=== PATIENT | female | born 1980 | race Hispanic/Latino ===

== ENCOUNTER 2017-07-28 11:36 | Emergency (ER) | payer MEDICAID ==
[2017-07-28 11:37] VITALS: BMI 24.9
[2017-07-28 11:47] VITALS: BP 115/79; RESP 18; TEMP 98.4
[2017-07-28] MEDS ORDERED: Acetaminophen 160 mg/5 ml UD PO ONE (12:17)
[2017-07-28] MEDS ORDERED: Acetaminophen 650mg/20.3ml solution UD ONE (12:21)
--- NOTE | 2017-07-28 12:39 | C.PDOC ---
History Of Present Illness The patient is a 36yo female, presents to the ED for evaluation of right great toe injury after striking her toe against the curb. Patient reports continued pain and swelling to the area. She denies any numbness or tingling and also denies taking medication for the pain. She offers no additional medical complaints. Time Seen by Provider: 07/28/17 12:15 Chief Complaint (Nursing): Lower Extremity Problem/Injury History Per: Patient History/Exam Limitations: no limitations Onset/Duration Of Symptoms: Days (1) Current Symptoms Are (Timing): Still Present Recent travel outside of the [place]: No Additional History Per: Patient - Ankle/Foot Description Of Injury: Struck Against Object Past Medical History Reviewed: Historical Data, Nursing Documentation, Vital Signs Vital Signs: Last Vital Signs Temp 98.4 F 07/28/17 13:15 Pulse 96 H 07/28/17 13:15 Resp 18 07/28/17 13:15 BP 115/79 07/28/17 13:15 Pulse Ox 99 07/29/17 09:13 - Medical History PMH: Anxiety, Gastritis Surgical History: No Surg Hx Family History: States: Unknown Family Hx - Social History Hx Tobacco Use: No Hx Alcohol Use: No Hx Substance Use: Yes - Immunization History Hx Tetanus Toxoid Vaccination: No Hx Influenza Vaccination: No Hx Pneumococcal Vaccination: No Review Of Systems Musculoskeletal: Positive for: Foot Pain (right great toe pain) Neurological: Negative for: Weakness, Numbness Physical Exam - Physical Exam Additional Physical Exam Comments: Constitutional: uncomfortable, wdwn Head: Normocephalic. Atraumatic. Musculoskeletal: Ecchymosis and swelling to medial aspect of right great toe. Decreased ROM right great toe due to pain. Normal DP pulses. normal rom other toes, foot and ankle with no tenderness or swelling. Neurologic: Alert, no focal deficit. ED Course And Treatment O2 Sat by Pulse Oximetry: 99 (RA) Pulse Ox Interpretation: Normal Medical Decision Making Medical Decision Making: Impression: 36yo female with right great toe injury Plan: -- XR Right foot -- Tylenol 640 mg PO xray reviewed with ? fx ventral surface great toe, michael tape toes 1 and 2 with ortho shoe and podiatry f/u Disposition Counseled Patient/Family Regarding: Studies Performed, Diagnosis, Need For Followup, Rx Given - Disposition Referrals: Podiatry Clinic [Outside] Disposition: HOME/ ROUTINE Disposition Time: 13:00 Condition: STABLE Additional Instructions: Keep toes michael taped and wear shoe for support. Tylenol or Motrin for pain. 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 MD/DO has examined the patient and agrees with the treatment plan. - Scribe Statement The provider has reviewed the documentation as recorded by the Luis Carlos Bellamy All medical record entries made by the Luis Carlos were at my direction and personally dictated by me. I have reviewed the chart and agree that the record accurately reflects my personal performance of the history, physical exam, medical decision making, and the department course for this patient. I have also personally directed, reviewed, and agree with the discharge instructions and disposition.
[2017-07-28 13:16] VITALS: PULSE 96
--- NOTE | 2017-07-28 13:49 | RAD ---
PROCEDURE: Right great toe dated 07/28/2017 TECHNIQUE:: AP radiograph of the right foot, with oblique and lateral view of the right great toe. COMPARISON: None. FINDINGS: BONES: Current study reveals a minimally displaced fracture along the base of the distal phalanx right great toe. . Fracture line appears to extend into lateral joint space margin of the DIP joint. JOINTS: Minor hallux valgus deformity of with slight prominence of the head of the 1st metatarsal. There is also minimal prominence of the soft tissues overlying the head of the 1st metatarsal and MCP joint. SOFT TISSUES: As above. No radiopaque foreign bodies OTHER FINDINGS: None. IMPRESSION: There is a fracture traversing base distal phalanx great toe which appears to extend into the joint space margin as above.
[2017-07-29 09:12] VITALS: O2SAT 99
== END 2017-07-28 13:15 | disposition home or self-care (01) ==
LOC: C.ER 11:36
DX: S92.421A Displaced fracture of distal phalanx of right great toe, initial encounter for closed fracture (principal); W22.8XXA Striking against or struck by other objects, initial encounter

== ENCOUNTER 2017-08-29 19:06 | Emergency (ER) | payer OTHER, MEDICAID ==
[2017-08-29 19:06] VITALS: BMI 24.9
[2017-08-29 19:13] VITALS: O2SAT 98
[2017-08-29 20:44] VITALS: BP 111/70; PULSE 81; RESP 18; TEMP 98
--- NOTE | 2017-08-29 20:46 | C.PDOC ---
History Of Present Illness 36 year old female presents to the ED with complaints of left shoulder pain for three days. Patient reports she was helping to move a resident when the resident pushed her injuring her L shoulder. She notes pain is worse with ROM and has not taken pain medications due to difficult swallowing pills. Patient has been applying ice but pain persists. She denies neck pain, back pain, numbness, or weakness. Time Seen by Provider: 08/29/17 19:27 Chief Complaint (Nursing): Upper Extremity Problem/Injury History Per: Patient History/Exam Limitations: no limitations Onset/Duration Of Symptoms: Days (3 days ) Current Symptoms Are (Timing): Still Present Quality: "Pain" Exacerbating Factor(s): Movement Recent travel outside of the [place]: No Past Medical History Reviewed: Historical Data, Nursing Documentation, Vital Signs Vital Signs: Last Vital Signs Temp 98 F 08/29/17 20:43 Pulse 81 08/29/17 20:43 Resp 18 08/29/17 20:43 BP 111/70 08/29/17 20:43 Pulse Ox 98 08/29/17 20:56 - Medical History PMH: Anxiety, Gastritis Family History: States: Unknown Family Hx - Social History Hx Tobacco Use: No Hx Alcohol Use: No Hx Substance Use: Yes (Marijuana) - Immunization History Hx Tetanus Toxoid Vaccination: No Hx Influenza Vaccination: No Hx Pneumococcal Vaccination: No Physical Exam - Physical Exam Appears: Non-toxic, No Acute Distress Skin: Warm, Dry Head: Atraumatic, Normacephalic Neck: Normal ROM, No Midline Cervical Tenderness, No Paracervical Tenderness, Supple Cardiovascular: Rhythm Regular, No Murmur Respiratory: No Rales, No Rhonchi, No Wheezing, Other (clear to auscultation bilaterally ) Extremity: Normal ROM (patient is able to abduct ), Tenderness (of the left shoulder to the AC joint), Capillary Refill (good capillary refill, less than two seconds ), No Deformity, No Swelling Pulses: Left Radial: Normal, Right Radial: Normal Neurological/Psych: Oriented x3, Normal Motor, Normal Sensation ED Course And Treatment O2 Sat by Pulse Oximetry: 98 (RA) - Other Rad Left shoulder X-Ray X-Ray: Viewed By Me, Read By Radiologist Interpretation: No acture fractures or dislocations. Progress Note: Patient was given Toradol and left shoulder X-Ray was ordered. Medical Decision Making Medical Decision Making: Shoulder sling applied. Disposition Counseled Patient/Family Regarding: Diagnosis, Need For Followup, Rx Given - Disposition Referrals: Susana Pichardo MD [Staff Provider] - Disposition: HOME/ ROUTINE Disposition Time: 20:35 Condition: STABLE Additional Instructions: Follow up with workman's comp or orthopedic referral in 2 days for re- evaluation and follow up. Rest, ice, wear sling. Take medication as prescribed. Return to the ER at any time for any new or worsening symptoms. 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 - Scribe Statement The provider has reviewed the documentation as recorded by the Scribmariela Noland All medical record entries made by the Nathanibmariela were at my direction and personally dictated by me. I have reviewed the chart and agree that the record accurately reflects my personal performance of the history, physical exam, medical decision making, and the department course for this patient. I have also personally directed, reviewed, and agree with the discharge instructions and disposition.
--- NOTE | 2017-08-30 08:49 | RAD ---
PROCEDURE: Radiographs of the Left Shoulder HISTORY: pain COMPARISON: No prior. FINDINGS: BONES: No fracture or destructive bony lesion identified. JOINTS: Normal. Glenohumeral and acromioclavicular joints preserved. No osteoarthritis. SOFT TISSUES: Trace calcification at the lateral rotator cuff region may indicate calcific tendinopathy. OTHER FINDINGS: None. IMPRESSION: No acute fracture subluxation or dislocation identified. Trace calcific tendinopathy not excluded.
== END 2017-08-29 20:49 | disposition home or self-care (01) ==
LOC: C.ER 19:06
DX: S43.402A Unspecified sprain of left shoulder joint, initial encounter (principal); W51.XXXA Accidental striking against or bumped into by another person, initial encounter
CPT/HCPCS: 73030; 96372; 99284; J1885

== ENCOUNTER 2018-01-22 02:26 | Emergency (ER) | payer MEDICAID ==
[2018-01-22 02:26] VITALS: BMI 24.9
[2018-01-22] MEDS ORDERED: Sodium Chloride 0.9% 1,000 ML IV ONE ×2 (02:30→03:03)
--- NOTE | 2018-01-22 02:30 | C.PDOC ---
History Of Present Illness 37 year old female presents to the ED c/o nausea, vomit and diarrhea after eating steak, mac and cheese at her friends house. Patient states she is not able to tolerate PO, and is actively dry heaving. Patient denies fever, chills, back pain. Time Seen by Provider: 01/22/18 02:29 History Per: Patient History/Exam Limitations: no limitations Onset/Duration Of Symptoms: Hrs Current Symptoms Are (Timing): Still Present Context: Food Location Of Pain/Discomfort: Diffuse Radiation Of Pain To:: None Quality Of Discomfort: "Pain" Associated Symptoms: Vomiting, Diarrhea, Loss Of Appetite Exacerbating Factors: Food Alleviating Factors: None Recent travel outside of the [place]: No Additional History Per: Patient Abnormal Vaginal Bleeding: No Past Medical History Reviewed: Historical Data, Nursing Documentation, Vital Signs Vital Signs: Last Vital Signs Temp 98 F 01/22/18 06:11 Pulse 83 01/22/18 06:11 Resp 18 01/22/18 06:11 BP 123/81 01/22/18 06:11 Pulse Ox 96 01/22/18 06:11 - Medical History PMH: Anxiety, Gastritis Surgical History: No Surg Hx Family History: States: Unknown Family Hx - Social History Hx Tobacco Use: No Hx Alcohol Use: No Hx Substance Use: Yes (Marijuana) - Immunization History Hx Tetanus Toxoid Vaccination: No Hx Influenza Vaccination: No Hx Pneumococcal Vaccination: No Review Of Systems Constitutional: Negative for: Fever, Chills Cardiovascular: Negative for: Chest Pain Respiratory: Negative for: Shortness of Breath Gastrointestinal: Positive for: Nausea, Vomiting, Abdominal Pain, Diarrhea Genitourinary: Negative for: Dysuria Musculoskeletal: Negative for: Back Pain Skin: Negative for: Rash Neurological: Negative for: Weakness, Numbness Physical Exam - Physical Exam Appears: Non-toxic, No Acute Distress Skin: Warm, Dry Head: Normacephalic Eye(s): bilateral: Normal Inspection Nose: No Discharge Oral Mucosa: Moist Neck: Supple Chest: Symmetrical Cardiovascular: Rhythm Regular, No Murmur Respiratory: No Rales, No Rhonchi, No Wheezing Gastrointestinal/Abdominal: Soft, Tenderness (diffusely), No Guarding Extremity: Normal ROM Neurological/Psych: Oriented x3 Gait: Steady ED Course And Treatment - Laboratory Results Result Diagrams: 01/22/18 02:48 03/14/18 02:48 Progress Note: Plan: - Labs. - Pepcid 20 mg IVP. - IV fluids. - Zofran 4 mg IVP. - UA Disposition Counseled Patient/Family Regarding: Studies Performed, Diagnosis - Disposition Disposition Time: 02:30 Condition: FAIR - Clinical Impression Clinical Impression: Abdominal pain, Nausea, Vomiting - Scribe Statement The provider has reviewed the documentation as recorded by the Scribe Alex Mancini All medical record entries made by the Scribe were at my direction and personally dictated by me. I have reviewed the chart and agree that the record accurately reflects my personal performance of the history, physical exam, medical decision making, and the department course for this patient. I have also personally directed, reviewed, and agree with the discharge instructions and disposition. Physician Patient Turnover Patient Signed Over To: Nitza Kay Handoff Comments: pending ct abd and disposition
[2018-01-22] MEDS ORDERED: Sodium Chloride 0.9% 1,000 ML ONE (02:42)
[2018-01-22 02:57] LABS: BASO # 0.2 K/uL (0.0-0.2); BASO % 0.8 % (0.0-2.0); EOS # 0.1 K/uL (0.0-0.7); EOS % 0.5 % (0.0-4.0); HEMOGLOBIN 13.8 g/dL (11.0-16.0); LYMPH # 2.7 K/uL (1.0-4.3); MEAN CELL VOLUME 90.7 fL (81.0-99.0); MEAN CORPUSCULAR HEMOGLOBIN 30.5 pg (27.0-31.0); MEAN CORPUSCULAR HGB CONC 33.7 g/dL (33.0-37.0); MEAN PLATELET VOLUME 9.8 fL (7.2-11.7); MONO # 1.2 K/uL (0.0-0.8); MONO % 5.7 % (0.0-10.0); NEUT # 16.7 K/uL (1.8-7.0); RBC 4.51 Mil/uL (3.80-5.20); RED CELL DISTRIBUTION WIDTH 13.3 % (11.5-14.5); WHITE BLOOD COUNT 20.9 K/uL (4.8-10.8)
[2018-01-22 02:58] LABS: INR 1.1; PROTHROMBIN TIME 12.3 SECONDS (9.7-12.2)
[2018-01-22 03:03] LABS: ALB/GLOB RATIO 1.5 (1.0-2.1); ALBUMIN 4.7 g/dL (3.5-5.0); ALT/SGPT 25 U/L (9-52); AST/SGOT 26 U/L (14-36); BLOOD UREA NITROGEN 21 mg/dL (7-17); CALCIUM 9.1 mg/dl (8.6-10.4); GFR AFRICAN-AMERICAN > 60; GFR NON-AFRICAN AMERICAN > 60; LIPASE 149 U/L (23-300)
[2018-01-22 06:04] LABS: SQUAMOUS EPITHIAL 1 /hpf (0-5); URINE BILIRUBIN NEGATIVE (NEGATIVE); URINE BLOOD NEGATIVE (NEGATIVE); URINE CLARITY Clear (Clear); URINE COLOR Yellow (YELLOW); URINE GLUCOSE (UA) NORMAL (Normal); URINE HYALINE CAST 0-2 /lpf (0-2); URINE LEUKOCYTE ESTERASE NEG Leu/uL (Negative); URINE PROTEIN NEGATIVE (NEGATIVE); URINE UROBILINOGEN NORMAL mg/dL (0.2-1.0)
[2018-01-22 06:26] LABS: HCG,QUALITATIVE URINE NEGATIVE (NEGATIVE)
[2018-01-22] MEDS ORDERED: Iodixanol 320 MG/ML 100 ML BOTTLE IV ONE (06:35)
--- NOTE | 2018-01-22 07:58 | CT ---
EXAM: CT Abdomen and Pelvis With Intravenous Contrast CLINICAL HISTORY: 37 years old, female; Pain; Abdominal pain; Generalized; Additional info: Abd pain, nausea, vomiting, leukocytosis TECHNIQUE: Axial computed tomography images of the abdomen and pelvis with intravenous contrast. All CT scans at this facility use one or more dose reduction techniques, viz.: automated exposure control; ma/kV adjustment per patient size (including targeted exams where dose is matched to indication; i.e. head); or iterative reconstruction technique. Coronal and sagittal reformatted images were created and reviewed. CONTRAST: 100 mL of [id number] administered intravenously. COMPARISON: CT - ABD PELVIS IV CONTRAST ONLY 2016-03-13 21:24 FINDINGS: Lower thorax: No acute findings. ABDOMEN: Liver: There are no focal liver lesions present. Mild periportal edema. Gallbladder and bile ducts: Marked gallbladder wall edema is noted. No calcified stones. No ductal dilation. Pancreas: Unremarkable. No mass. No ductal dilation. Spleen: Unremarkable. No splenomegaly. Adrenals: Unremarkable. No mass. Kidneys and ureters: Unremarkable. No solid mass. No hydronephrosis. Stomach and bowel: The mid to distal small bowel loops are mildly thickwalled with haziness of the adjacent small bowel mesentery suggesting acute enteritis. No obstruction. The colon is decompressed. Appendix: A normal appendix is identified. PELVIS: Bladder: Unremarkable. No mass. Reproductive: Unremarkable as visualized. ABDOMEN and PELVIS: Intraperitoneal space: There is a small amount of free pelvic fluid present. No free air. Bones/joints: No acute fracture. No dislocation. Soft tissues: Unremarkable. Vasculature: Unremarkable. No abdominal aortic aneurysm. Lymph nodes: Unremarkable. No enlarged lymph nodes. IMPRESSION: Marked gallbladder wall edema. Clinical correlation with laboratory values recommended to exclude acute cholecystitis. Right upper quadrant ultrasound could be obtained. Nonspecific mild periportal edema. This can be associated with fluid resuscitation. Acute enteritis. Small pelvic free fluid.
[2018-01-22] MEDS ORDERED: Morphine 4 MG/ML VIAL ONE (08:36)
--- NOTE | 2018-01-22 09:58 | US ---
HISTORY: nv, abn ct scan COMPARISON: None. TECHNIQUE: Sonographic evaluation of the right upper quadrant of the abdomen. FINDINGS: LIVER: Measures 15.0 cm in length. Normal echogenicity of the liver parenchyma. No mass. Questionable mild intrahepatic bile duct dilatation. GALLBLADDER: Nonspecific wall edema. Collapsed gallbladder. No gallstones or sludge. COMMON BILE DUCT: Measures 5 mm. No stones. No dilatation. PANCREAS: Unremarkable as visualized. No mass. No ductal dilatation. RIGHT KIDNEY: Measures 10.9 x 3.3 x 4.7 cm in length. Normal echogenicity. No calculus, mass, or hydronephrosis. AORTA: No aneurysmal dilatation. IVC: Unremarkable. OTHER FINDINGS: None . IMPRESSION: Gallbladder collapsed without stones or sludge. Nonspecific market gallbladder wall thickening. Gallbladder wall thickening is a nonspecific finding which can be seen with ascites, hepatitis, cholecystitis, CHF or hypoproteinemic states. Clinical correlation is recommended. If clinical concern for gallbladder pathology exists, a HIDA scan may be performed to evaluate for cystic and common duct patency.
--- NOTE | 2018-01-22 12:07 | CP.PCM.CON ---
History of Present Illness - History of Present Illness History of Present Illness: Surgery Consult Note. Dr. Chen 37yo F with PMHx of gastritis here for evaluation of nausea, vomiting and diarrhea. Patient reports symptoms started yesterday night. She states that she ate steak and mac n cheese yesterday evening and started having nausea and vomiting (non bilious, non bloody) 2 hours after. She states that she has been having generalized abdominal pain which is described as "muscle soreness from all the vomiting." She also c/o loose BMs x 2 last night and a semi-formed stool this morning. She reports some improvement in her symptoms today. She reports no subjective fevers, does c/o chills. She does report that in the past she has had some RUQ pain after eating a "fatty meal" but the current symptoms feel different. Denies any CP/SOB. No urinary complaints. No headaches. No sick contacts. PMHx: Anxiety, Gastritis PSHx: None Family Hx: non-contributory Social Hx: Deneis Tobacco use, Denies ETOH, admits to occasional marijuana use NKDA Review of Systems - Review of Systems All systems: reviewed and no additional remarkable complaints except - Constitutional Constitutional: Chills. absent: Fever - Cardiovascular Cardiovascular: absent: Chest Pain, Dyspnea - Respiratory Respiratory: absent: Cough, Dyspnea - Gastrointestinal Gastrointestinal: Belching, Diarrhea, Loose Stools, Nausea, Vomiting. absent: Hematemesis, Hematochezia, Melena - Genitourinary Genitourinary: absent: Difficulty Urinating, Dysuria - Musculoskeletal Musculoskeletal: absent: Back Pain - Neurological Neurological: absent: Dizziness, Headaches - Psychiatric Psychiatric: Anxiety Past Patient History - Infectious Disease Hx of Infectious Diseases: None - Past Medical History & Family History Past Medical History?: Yes Past Family History: Reviewed and not pertinent - Past Social History Smoking Status: Never Smoked Alcohol: None Drugs: Cannabis - MUSCULOSKELETAL/RHEUMATOLOGICAL Hx Falls: No - GASTROINTESTINAL Hx Gastritis: Yes - PSYCHIATRIC Hx Anxiety: Yes Hx Substance Use: Yes (Marijuana) - SURGICAL HISTORY Hx Surgeries: No - ANESTHESIA Hx Anesthesia: No Meds Home Medications: Home Medication List Medication Instructions Recorded Confirmed Type Amoxicillin/Clavulanate [Augmentin 1 tab PO BID #14 tab 01/22/18 Rx 875 MG-125 MG] Ondansetron [Zofran Odt] 4 mg PO TID PRN #9 odt 01/22/18 Rx oxyCODONE/Acetaminophen [Percocet 1 ea PO QID #8 tab 01/22/18 Rx 5/325 mg Tab] Allergies/Adverse Reactions: Allergies Allergy/AdvReac Type Severity Reaction Status Date / Time No Known Allergies Allergy Verified 07/28/17 11:48 Physical Exam - Constitutional Appears: Well, Non-toxic, No Acute Distress - Head Exam Head Exam: ATRAUMATIC, NORMAL INSPECTION, NORMOCEPHALIC - Eye Exam Eye Exam: EOMI, Normal appearance - ENT Exam ENT Exam: Mucous Membranes Moist, Normal Exam - Neck Exam Neck exam: Positive for: Normal Inspection - Respiratory Exam Respiratory Exam: NORMAL BREATHING PATTERN. absent: Accessory Muscle Use, Respiratory Distress - Cardiovascular Exam Cardiovascular Exam: RRR. absent: JVD - GI/Abdominal Exam GI & Abdominal Exam: Soft. absent: Distended, Firm, Guarding, Rebound, Rigid, Tenderness Additional comments: No tenderness to superficial or to deep palpation at the RUQ. No Rebound, no guarding. Negative Barrientos's sign No rovsing's sing. No McBurney's point tenderness - Extremities Exam Extremities exam: Positive for: normal inspection. Negative for: calf tenderness - Neurological Exam Neurological exam: Alert, Oriented x3 - Psychiatric Exam Psychiatric exam: Anxious, Normal Affect - Skin Skin Exam: Dry, Intact, Normal Color, Warm Results - Vital Signs Recent Vital Signs: Last Vital Signs Temp 98.4 F 01/22/18 10:21 Pulse 93 H 01/22/18 10:21 Resp 16 01/22/18 10:21 BP 116/79 01/22/18 10:21 Pulse Ox 98 01/22/18 10:21 - Labs Result Diagrams: 01/22/18 02:48 01/22/18 02:48 Labs: Laboratory Results - last 24 hr 01/22/18 01/22/18 01/22/18 02:48 02:48 02:48 WBC 20.9 H D RBC 4.51 Hgb 13.8 Hct 40.9 MCV 90.7 MCH 30.5 MCHC 33.7 RDW 13.3 Plt Count 356 D MPV 9.8 Neut % (Auto) 80.0 H Lymph % (Auto) 13.0 L Hendricks % (Auto) 5.7 Eos % (Auto) 0.5 Baso % (Auto) 0.8 Neut # (Auto) 16.7 H Lymph # (Auto) 2.7 Hendricks # (Auto) 1.2 H Eos # (Auto) 0.1 Baso # (Auto) 0.2 PT 12.3 H INR 1.1 APTT 27 Sodium 143 Potassium 3.1 L Chloride 104 Carbon Dioxide 23 Anion Gap 19 BUN 21 H Creatinine 0.7 Est GFR ( Amer) > 60 Est GFR (Non-Af Amer) > 60 Random Glucose 146 H Calcium 9.1 Total Bilirubin 0.7 AST 26 ALT 25 Alkaline Phosphatase 70 Total Protein 7.9 Albumin 4.7 Globulin 3.2 Albumin/Globulin Ratio 1.5 Lipase 149 Urine Color Urine Clarity Urine pH Ur Specific [place] Urine Protein Urine Glucose (UA) Urine Ketones Urine Blood Urine Nitrate Urine Bilirubin Urine Urobilinogen Ur Leukocyte Esterase Urine WBC (Auto) Urine RBC (Auto) Ur Squamous Epith Cells Hyaline Casts Urine HCG, Qual 01/22/18 05:55 WBC RBC Hgb Hct MCV MCH MCHC RDW Plt Count MPV Neut % (Auto) Lymph % (Auto) Hendricks % (Auto) Eos % (Auto) Baso % (Auto) Neut # (Auto) Lymph # (Auto) Hendricks # (Auto) Eos # (Auto) Baso # (Auto) PT INR APTT Sodium Potassium Chloride Carbon Dioxide Anion Gap BUN Creatinine Est GFR ( Amer) Est GFR (Non-Af Amer) Random Glucose Calcium Total Bilirubin AST ALT Alkaline Phosphatase Total Protein Albumin Globulin Albumin/Globulin Ratio Lipase Urine Color Yellow Urine Clarity Clear Urine pH 6.0 Ur Specific [place] 1.019 Urine Protein Negative Urine Glucose (UA) Normal Urine Ketones 1+ H Urine Blood Negative Urine Nitrate Negative Urine Bilirubin Negative Urine Urobilinogen Normal Ur Leukocyte Esterase Neg Urine WBC (Auto) 1 Urine RBC (Auto) < 1 Ur Squamous Epith Cells 1 Hyaline Casts 0-2 Urine HCG, Qual Negative Assessment & Plan - Assessment and Plan (Free Text) Assessment: 37yo F with probable enteritis. Surgery consulted to r/o cholecystitis - CT noted. SB enteritis noted. GB changes noted - Abd US noted. Collapsed GB with no stones or sludge. CBD 5mm Plan: - Likely enteritis - Low suspicion for acute GB disease. No indication for HIDA at this time - Recommend treatment for enteritis at this time. Repeat Abdominal US as outpatient once enteritis symptoms resolve and f/u in surgery clinic Discussed findings with Dr. Chen. Further recs as per Dr. Gustavo Cramer PGY1 surgery pager: [phone]
[2018-01-22] MEDS ORDERED: Amoxicillin-Clav 875-125 mg Tab PO STA (12:16)
[2018-01-22] MEDS ORDERED: Amoxicillin-Clav 875-125 mg Tab PO ONE (12:25)
[2018-01-22 12:55] VITALS: BP 115/74; PULSE 56; RESP 20; TEMP 97.6; O2SAT 99
== END 2018-01-22 13:11 | disposition home or self-care (01) ==
LOC: C.ER 02:26
DX: K52.9 Noninfective gastroenteritis and colitis, unspecified (principal)
CPT/HCPCS: 74177; 76705; 80053; 81001; 83690; 84703; 85025; 85610; 85730; 96361; 96374; 96375; 96376; 99285; J2060; J2270; J2405; J2765; J7040; Q9967

== ENCOUNTER 2018-12-23 16:22 | Emergency (ER) | payer MEDICAID ==
[2018-12-23 16:23] VITALS: BMI 24.9
[2018-12-23] MEDS ORDERED: Sodium Chloride 0.9% 1,000 ML IV ONE (16:42)
[2018-12-23] MEDS ORDERED: Sodium Chloride 0.9% 1,000 ML ONE (16:50)
[2018-12-23 16:55] LABS: BASO % 0.2 % (0.0-2.0); EOS % 0.3 % (0.0-4.0); HEMOGLOBIN 14.6 g/dL (11.0-16.0); LYMPH # 0.7 K/uL (1.0-4.3); LYMPH % 5.6 % (20.0-40.0); MEAN CELL VOLUME 91.8 fL (81.0-99.0); MEAN CORPUSCULAR HEMOGLOBIN 30.4 pg (27.0-31.0); MEAN CORPUSCULAR HGB CONC 33.1 g/dL (33.0-37.0); MEAN PLATELET VOLUME 9.8 fL (7.2-11.7); MONO # 0.5 K/uL (0.0-0.8); MONO % 4.5 % (0.0-10.0); NEUT # 10.6 K/uL (1.8-7.0); NEUT % 89.4 % (50.0-75.0); RED CELL DISTRIBUTION WIDTH 13.2 % (11.5-14.5); WHITE BLOOD COUNT 11.8 K/uL (4.8-10.8)
[2018-12-23 17:00] LABS: PLATELET COUNT 231 K/uL (130-400)
--- NOTE | 2018-12-23 17:02 | C.PDOC ---
History Of Present Illness 38 year old female with history of gastritis and anxiety presents to ED with complaint of diarrhea since 8:30 this morning. Patient states that she has had 12 episodes of diarrhea and states that it "looks like urine". Patient also s tates that she has been vomiting since noon of today and reports a burning sensation in her stomach. Patient also complains of lightheadedness and chills. Patient states that she has episodes like this once a year. She has multiple sick contacts at work. Patient's PMD is Dr. Cao. Patient is a non-smoker and denies alcohol and drug abuse. Patient denies any recent travel, bloody stool, bilious or bloody vomit, fever, and urinary symptoms. Time Seen by Provider: 12/23/18 16:25 Chief Complaint (Nursing): Abdominal Pain History Per: Patient History/Exam Limitations: no limitations Onset/Duration Of Symptoms: Hrs (9) Current Symptoms Are (Timing): Still Present Quality Of Discomfort: Burning (burning sensation in the stomach) Associated Symptoms: Chills, Vomiting, Diarrhea, Other (lightheadedness). denies: Fever, Urinary Symptoms Past Medical History Reviewed: Historical Data, Nursing Documentation, Vital Signs Vital Signs: Last Vital Signs Temp 97.8 F 12/23/18 16:29 Pulse 77 12/23/18 16:29 Resp 14 12/23/18 16:29 BP 105/67 12/23/18 16:29 Pulse Ox 100 12/23/18 16:29 - Medical History PMH: Anxiety, Gastritis Surgical History: No Surg Hx Family History: States: Unknown Family Hx - Social History Hx Tobacco Use: No Hx Alcohol Use: No Hx Substance Use: Yes (Marijuana) - Immunization History Hx Tetanus Toxoid Vaccination: No Hx Influenza Vaccination: No Hx Pneumococcal Vaccination: No Review Of Systems Constitutional: Positive for: Chills. Negative for: Fever, Weakness Cardiovascular: Negative for: Chest Pain, Palpitations Respiratory: Negative for: Cough, Shortness of Breath Gastrointestinal: Positive for: Vomiting, Diarrhea. Negative for: Hematochezia, Hematemesis Genitourinary: Negative for: Hematuria Neurological: Negative for: Weakness, Numbness, Dizziness Physical Exam - Physical Exam Appears: Non-toxic, No Acute Distress, Other (tired appearing) Skin: Normal Color, Warm, Dry Head: Atraumatic, Normacephalic Eye(s): bilateral: PERRL, EOMI Oral Mucosa: Dry Lips: Normal Appearing Throat: No Erythema Neck: Normal ROM, Trachea Midline Lymphatic: No Adenopathy Chest: Symmetrical, No Tenderness Cardiovascular: Rhythm Regular, No Murmur Respiratory: Normal Breath Sounds, No Wheezing Gastrointestinal/Abdominal: Soft, Tenderness (mild), No Mass, No Guarding, No Rebound Back: Normal Inspection, No Decreased ROM Neurological/Psych: Oriented x3, Normal Motor, Normal Sensation ED Course And Treatment - Laboratory Results Result Diagrams: 12/23/18 16:52 12/23/18 16:52 Lab Results: No emergently significant abnormalities O2 Sat by Pulse Oximetry: 100 Medical Decision Making Medical Decision Making: Impression: vomiting and diarrhea Differential Diagnosis: gastroenteritis, electrolyte abnormality, dehydration, and viral syndrome. Plan: Labs ordered with C.Diff toxin A/B and stool culture. Patient given IV fluids, Zofran IV, and Pepcid IVP. 1900 Pt had nausea on PO challenge. Addn'l reglan, benadryl and IVF ordered. 2230 Pt tolerated PO in ER. Stable for dc. DW pt findings and plan of care. Zofran, fluids, rest, f/u PMD Disposition Counseled Patient/Family Regarding: Studies Performed, Diagnosis, Need For Followup, Rx Given - Disposition Referrals: Shaik Redmond MD [Staff Provider] - Disposition: HOME/ ROUTINE Disposition Time: 21:17 Condition: IMPROVED Prescriptions: Ondansetron ODT [Zofran ODT] 1 odt PO Q6 PRN #20 odt PRN Reason: Nausea/Vomiting Instructions: Viral Gastroenteritis, Adult (DC) Forms: Work Excuse - Clinical Impression Clinical Impression: Vomiting, Diarrhea - Scribe Statement The provider has reviewed the documentation as recorded by the Scribe (Sarai Schreiber) All medical record entries made by the Scribe were at my direction and personally dictated by me. I have reviewed the chart and agree that the record accurately reflects my personal performance of the history, physical exam, medical decision making, and the department course for this patient. I have also personally directed, reviewed, and agree with the discharge instructions and disposition.
[2018-12-23 17:06] LABS: INR 1.2; PROTHROMBIN TIME 13.5 SECONDS (9.7-12.2)
[2018-12-23 17:09] LABS: ALB/GLOB RATIO 1.6 (1.0-2.1); ALBUMIN 4.9 g/dL (3.5-5.0); ALT/SGPT 15 U/L (9-52); AST/SGOT 28 U/L (14-36); BLOOD UREA NITROGEN 20 mg/dL (7-17); CALCIUM 9.5 mg/dl (8.6-10.4); GFR NON-AFRICAN AMERICAN > 60; LIPASE 83 U/L (23-300)
[2018-12-23 17:13] LABS: HCG,QUALITATIVE URINE NEGATIVE (NEGATIVE)
[2018-12-23 17:17] LABS: URINE BILIRUBIN SMALL (NEGATIVE); URINE CLARITY HAZY (Clear); URINE COLOR YELLOW (YELLOW); URINE GLUCOSE (UA) NEG (Normal)
[2018-12-23 17:18] LABS: PH,URINE 5.5 (5.0-8.0); URINE BLOOD SMALL (NEGATIVE); URINE LEUKOCYTE ESTERASE NEG Leu/uL (Negative); URINE PROTEIN NEGATIVE (NEGATIVE); URINE UROBILINOGEN 0.2 mg/dL (0.2-1.0)
[2018-12-23 17:19] LABS: URINE AMORPHOUS SEDIMENT MANY /ul (<OCC)
[2018-12-23 17:28] LABS: LYMPHOCYTE 6 % (20-40); MONOCYTE 5 % (0-10); NEUTROPHIL 89 % (50-75); TOTAL CELLS COUNTED 100
[2018-12-23 17:29] LABS: PLATELET ESTIMATE NORMAL (NORMAL)
[2018-12-23 17:30] LABS: LARGE PLATELETS PRESENT
[2018-12-23] MEDS ORDERED: Dextrose 5%/0.9% NS 1,000 ML IV ONE ×2 (18:50→19:03)
[2018-12-23] MEDS ORDERED: DiphenhydrAMINE 50 mg/ml Inj IVP STA (18:50)
[2018-12-23] MEDS ORDERED: DiphenhydrAMINE 50 mg/ml Inj ONE (19:02)
[2018-12-23 21:08] VITALS: BP 100/62; PULSE 81; RESP 16; TEMP 99.5
[2018-12-23 21:19] VITALS: O2SAT 100
== END 2018-12-23 21:30 | disposition home or self-care (01) ==
LOC: C.ER 16:22
DX: R19.7 Diarrhea, unspecified (principal); R11.10 Vomiting, unspecified
CPT/HCPCS: 80053; 81001; 83605; 83690; 84703; 85025; 85610; 85730; 87045; 87230; 96365; 96375; 99285; J1200; J2405; J2765; J7030; J7042

== ENCOUNTER 2019-01-15 08:34 | Emergency (ER) | payer MEDICAID ==
[2019-01-15 08:34] VITALS: BMI 24.9
[2019-01-15 08:50] VITALS: O2SAT 97
[2019-01-15] MEDS ORDERED: Tetanus/Diphtheria Toxoids 0.5 ml Syringe IM ONE ×2 (09:37→09:54)
--- NOTE | 2019-01-15 10:14 | CT ---
Date of service: 01/15/2019 PROCEDURE: CT MAXILLOFACIAL BONES WITHOUT CONTRAST HISTORY: Facial injury, r/o nasal fx, r/o septal hematoma COMPARISON: [facility] TECHNIQUE: Contiguous axial CT images of the maxillofacial bones were obtained. Coronal and sagittal reformats were generated. Radiation dose: Total exam DLP = 736.35 mGy-cm. This CT exam was performed using one or more of the following dose reduction techniques: Automated exposure control, adjustment of the mA and/or kV according to patient size, and/or use of iterative reconstruction technique. FINDINGS: NASAL BONES: Nondisplaced fractures of the anterior nasal bones. There is slight prominence of the soft tissue component of the anterior nasal septum suggesting suggesting mild edema however no discrete convex soft tissue hyperdense component seen to suggest significant hemorrhage. ORBITS: Bony orbits intact. Globes intact and lenses appropriately located. There are no retrobulbar hemorrhages or collections. Optic nerves and extraocular musculature unremarkable. PARANASAL SINUSES/ MASTOIDS: There is mild lobulated-polypoid like mucosal thickening right maxillary antrum.. Minimal mucosal thickening also noted within several ethmoid air cells. The remaining paranasal sinuses are clear. MAXILLA: The anterior nasal spine appears bifid with discontinuity of the right component possibly representing a mildly displaced fracture. Clinical correlation recommended MANDIBLE/ TEMPOROMANDIBULAR JOINTS: Unremarkable. SKULL BASE: Unremarkable. TEMPORAL BONES: Middle ears and mastoid grossly unremarkable. OTHER FINDINGS: None. IMPRESSION: Nondisplaced bilateral nasal bone fractures. There is suspected swelling of the soft tissue aspect of the nasal septum however no discrete hyperdense hemorrhages are identified. Bifid appearing anterior nasal spine with the suspected minimally displaced fracture of the right sided component. Mild mucosal thickening right maxillary antrum
--- NOTE | 2019-01-15 11:01 | C.PDOC ---
History Of Present Illness 38 y/o female presents to the ED for evaluation s/p nasal trauma. Patient states she was changing the oil in her car and got hit in the nose with the paulino of the car. She denies any LOC but reports she felt lightheaded. Patient began bleeding immediately from the laceration but had no epistaxis. Tetanus vaccination is not up to date. Denies any other injury. Time Seen by Provider: 01/15/19 08:53 Chief Complaint (Nursing): ENT Problem History Per: Patient History/Exam Limitations: no limitations Onset/Duration Of Symptoms: Hrs Current Symptoms Are (Timing): Still Present Past Medical History Reviewed: Historical Data, Nursing Documentation, Vital Signs Vital Signs: Last Vital Signs Temp 98.2 F 01/15/19 08:44 Pulse 89 01/15/19 08:44 Resp 18 01/15/19 08:44 BP 134/97 H 01/15/19 08:44 Pulse Ox 97 01/15/19 08:44 - Medical History PMH: Anxiety, Gastritis Family History: States: Unknown Family Hx - Social History Hx Tobacco Use: No Hx Alcohol Use: No Hx Substance Use: Yes (Marijuana) - Immunization History Hx Tetanus Toxoid Vaccination: No Hx Influenza Vaccination: No Hx Pneumococcal Vaccination: No Review Of Systems Except As Marked, All Systems Reviewed And Found Negative. Constitutional: Negative for: Fever, Chills Eyes: Negative for: Vision Change ENT: Positive for: Nose Pain. Negative for: Other (epistaxis) Cardiovascular: Positive for: Light Headedness (now improved). Negative for: Chest Pain Respiratory: Negative for: Shortness of Breath Gastrointestinal: Negative for: Nausea, Vomiting Musculoskeletal: Negative for: Neck Pain Skin: Positive for: Lesions (laceration to nasal bridge) Neurological: Negative for: Weakness, Numbness, Change in Speech, Dizziness Physical Exam - Physical Exam Appears: Non-toxic, No Acute Distress, Other (Tearful on exam) Skin: Warm, Dry Head: Normacephalic, Laceration (1 cm laceration to the nose) Eye(s): bilateral: Normal Inspection, PERRL, EOMI Nose: No Epistaxis, Tenderness (Nasal bridge is TTP with mild swelling and ecchymosis), No Septal Hematoma (No definitive septal hematoma, however there is mild swelling of the right nasal septum) Oral Mucosa: Moist Teeth: Normal Dentition, No Loose Throat: Normal (airway patent, OP clear), No Erythema Neck: Normal ROM, No Midline Cervical Tenderness, Supple Chest: Symmetrical Cardiovascular: Rhythm Regular, No Murmur Respiratory: Normal Breath Sounds, No Accessory Muscle Use, No Wheezing Extremity: Bilateral: Atraumatic, Normal Color And Temperature, Normal ROM Neurological/Psych: Oriented x3, Normal Speech, Normal Cranial Nerves Gait: Steady ED Course And Treatment O2 Sat by Pulse Oximetry: 97 (RA) Pulse Ox Interpretation: Normal - CT Scan/US Maxillary CT Other Rad Studies (CT/US): Read By Radiologist, Radiology Report Reviewed CT/US Interpretation: Accession No. : [id number]. Patient Name / ID : KERLINE STARR / [id number]. Exam Date : 01/15/2019 09:33:06 ( Approved ). Study Comment : Sex / Age : F / 38Y. Creator : Aaron Hu MD. Dictator : Aaron Hu MD. Can Cleaner : Paper Inspector : Aaron Hu MD. Approver2 : Report Date : 01/15/2019 10:11:30. My Comment : . Date of service: 01/15/2019. PROCEDURE: CT MAXILLOFACIAL BONES WITHOUT CONTRAST. HISTORY: Facial injury, r/o nasal fx, r/o septal hematoma. COMPARISON: [facility]. TECHNIQUE: Contiguous axial CT images of the maxillofacial bones were obtained. Coronal and sagittal reformats were generated. Radiation dose: Total exam DLP = 736.35 mGy-cm. This CT exam was performed using one or more of the following dose reduction techniques: Automated exposure control, adjustment of the mA and/or kV according to patient size, and/or use of iterative reconstruction technique. FINDINGS: NASAL BONES: Nondisplaced fractures of the anterior nasal bones. There is slight prominence of the soft tissue component of the anterior nasal septum suggesting suggesting mild edema however no discrete convex soft tissue hyperdense component seen to suggest significant hemorrhage. ORBITS: Bony orbits intact. Globes intact and lenses appropriately located. There are no retrobulbar hemorrhages or collect ions. Optic nerves and extraocular musculature unremarkable. PARANASAL SINUSES/ MASTOIDS: There is mild lobulated-polypoid like mucosal thickening right maxillary antrum.. Minimal mucosal thickening also noted within several ethmoid air cells. The remaining paranasal sinuses are clear. MAXILLA: The anterior nasal spine appears bifid with discontinuity of the right component possibly representing a mildly displaced fracture. Clinical correlation recommended. MANDIBLE/ TEMPOROMANDIBULAR JOINTS: Unremarkable. SKULL BASE: Unremarkable. TEMPORAL BONES: Middle ears and mastoid grossly unremarkable. OTHER FINDINGS: None. IMPRESSION: Nondisplaced bilateral nasal bone fractures. There is suspected swelling of the soft tissue aspect of the nasal septum however no discrete hyperdense hemorrhages are identified. Bifid appearing anterior nasal spine with the suspected minimally displaced fracture of the right sided component. Mild mucosal thickening right maxillary antrum Progress Note: Maxillofacial CT scan obtained and reviewed. Tetanus booster given. CT shows nasal fractures, no septal hematoma noted. Laceration repaired using skin glue, tolerated well by patient. Case discussed with Dr. Perales, who recommends patient follow up in the office. Patient will be discharged home with pain medication. Counseled regarding findings and wound care. Laceration - Laceration Repair Nose Wound Length (In cm): 1 Description Of Wound: Linear Wound Cleansed With: Betadine, Sterile Saline Wound Examination: Irrigated With Saline Wound Closure: Skin Glue Wound Complexity: Simple Disposition Counseled Patient/Family Regarding: Diagnosis, Need For Followup, Rx Given - Disposition Referrals: Rd Perales MD [Staff Provider] - Disposition: HOME/ ROUTINE Disposition Time: 11:00 Condition: STABLE Additional Instructions: FOLLOW UP WITH YOUR DOCTOR IN 1-2 DAYS FOLLOW UP WITH ENT SPECIALIST WITHIN 1 WEEK USE PAIN MEDICATION NEEDED KEEP LACERATION CLEAN AND DRY RETURN TO ER IF YOU HAVE CONCERNING SYMPTOMS Prescriptions: Cephalexin [Keflex] 500 mg PO BID #14 capsule Naproxen 375 mg PO BID PRN #20 tablet PRN Reason: pain traMADol [Ultram] 50 mg PO BID PRN #12 tab PRN Reason: pain Instructions: Laceration Repair With Glue (DC), Nose Fracture (DC) Forms: [employer] (Czech), Work Excuse Print Language: BOLIVIAN - POA Present On Arrival: Falls Or Trauma - Clinical Impression Clinical Impression: Nasal bone fracture, Nasal laceration - Scribe Statement The provider has reviewed the documentation as recorded by the Luis Carlos Puentes Provider Attestation: All medical record entries made by the Luis Carlos were at my direction and personally dictated by me. I have reviewed the chart and agree that the record accurately reflects my personal performance of the history, physical exam, medical decision making, and the department course for this patient. I have also personally directed, reviewed, and agree with the discharge instructions and disposition.
[2019-01-15 11:32] VITALS: BP 112/77; PULSE 83; RESP 17; TEMP 98.8
== END 2019-01-15 11:33 | disposition home or self-care (01) ==
LOC: C.ER 08:34
DX: S02.2XXA Fracture of nasal bones, initial encounter for closed fracture (principal); S01.21XA Laceration without foreign body of nose, initial encounter; W22.8XXA Striking against or struck by other objects, initial encounter